=== PATIENT | female | born 1955 | race Caucasian/White ===

== ENCOUNTER 2016-12-20 11:59 | Emergency (ER) | payer BC, OTHER ==
[~2016-12-20] VITALS: Ht 160 cm; Wt 135.0 kg
[~2016-12-20 11:59] MED LIST: AMLO-147 PO; ASPRIN PO; CHOL500010 PO; CLON0.3T PO; GABA300C PO; GLYB1TAB3 PO; LAS80 PO; METO-53 PO; NAPR375T PO; NIAC500T30 PO; PYRI100T59 PO; SIMV40TA3 PO; SPIR25TA PO; TRAZADONE PO; [UNRECOGNIZED DRUG - REMARK]
[2016-12-20 12:06] VITALS: Ht 160 cm; Wt 135.0 kg
[2016-12-20] MEDS ORDERED: HYDROCODONE/APAP (10/325) TAB PO ONE (14:30)
--- NOTE | 2016-12-20 16:20 | RADRPT ---
PROCEDURE: CT Lumbar Spine without contrast. CLINICAL INDICATION: Lumbar spine pain. TECHNIQUE: The study was performed on a multislice multidetector CT scanner. Spiral axial 1 mm im ages were obtained through the lumbar spine without intravenous contrast. 1 or more of the following dose reduction techniques were utilized: Automated exposure control, adjustment of the mA and/or k V according to patient's size, iterative reconstruction technique. Coronal and sagittal reformation s were obtained. The images were reviewed on a PACS workstation. RADIATION DOSE: CTDIvol: 47.0 mGyDLP: 1648.4 mGy-cm COMPARISON: No prior studies are available for comparison. FINDINGS: There is a mild right convex scoliosis centered at L5-S1. There are diffuse anterior osteophytes th roughout the lower thoracic and lumbar spine with mild to moderate narrowing of the intervertebral d iscs at L3-4 and L4-5, slightly asymmetric to the left and L4-5. The vertebral body height and area of density is within normal limits. There are bridging right anterolateral osteophytes at T11-12,T1 2- L1 and L1-2. 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 There is mild atherosclerotic calcification of the abdominal aorta witho ut evidence of aneurysm formation. The paraspinal soft tissues unremarkable. L1-L2: The posterior margin of the disc is normal in appearance. No significant disc bulge or prot rusion is evident. The central canal and neural foramina are adequately patent. L2-L3: The posterior margin of the disc is normal in appearance. No significant disc bulge or prot rusion is evident. The central canal and neural foramina are adequately patent. L3-L4: There is a 3-4 mm posterior disc/osteophyte complex. The thecal sac is patent measuring 10 mm midline AP diameter. There is minimal effacement of both lateral recesses. There is mild bilate ral neural foraminal narrowing. L4-L5: There is a 4-5 mm annular disc bulge, asymmetric to the left paracentral/foraminal region. The thecal sac measures, measuring 6.5 mm in midline AP diameter. There is severe left and moderate right narrowing of the lateral recesses. There is severe bilateral neural foraminal narrowing. Th ere is moderate bilateral facet spondylosis with buckling ligamentum flavum. L5-S1: There is a 3 mm annular disc bulge, slightly asymmetric to the right paracentral/foraminal r egion. The thecal sac is patent measuring 10 mm midline AP diameter. There is moderate bilateral f acet hypertrophy buckling ligamentum flavum. There is mild effacement of both lateral recesses, lef t worse than right. There is moderate right and mild left neural foraminal narrowing. IMPRESSION: 1. No acute abnormality of the lumbar spine. No evidence of fracture. 2. Multilevel mild to moderate spondylosis/degenerative enthesopathy, worst at L4-5 with subsequent severe spinal stenosis, severe narrowing of the left lateral recess and severe bilateral neural for aminal narrowing at this level. RPTAT: HGAS .Refugio Matias MD, Date Time Electronically viewed and signed by .Refugio Matias MD, on 12/20/2016 16:20 .S/
--- NOTE | 2016-12-20 16:24 | RADRPT ---
PROCEDURE: CT thoracic spine without contrast. CLINICAL INDICATION: Thoracic spine pain. TECHNIQUE: The study was performed utilizing a multislice multidetector CT scanner. Direct spiral 1 mm axial sections were obtained through the thoracic spine without contrast. 1 or more of the fol lowing dose reduction techniques were utilized: Automated exposure control, adjustment of the mA an d/or kV according to patient's size, iterative reconstruction technique. Coronal and sagittal refor mations were obtained. The images were reviewed on a PACS workstation. RADIATION DOSE: CTDIvol: 45.8 mGyDLP: 1842.7 mGy-cm COMPARISON: No prior studies are available for comparison. FINDINGS: The alignment of the thoracic spine is within normal limits. There are flowing anterior osteophytes from T4-T9 consistent with DISH . The vertebral body heights and marrow density are normal in appe arance. There is no evidence of fracture The intervertebral disc spaces are preserved. The paraspi nal soft tissues unremarkable. There is no significant narrowing of the thoracic thecal sac or neur al foramina. On axial images, the posterior margin of the disc, thecal sac and neural foramina are p atent at all levels. IMPRESSION: 1. No acute abnormality of the thoracic spine. No evidence of fracture. 2. Multilevel flowing anterior osteophytes from T4 - T9 consistent with DISH. RPTAT: HGAS .Refugio Matias MD, MD Date Time Electronically viewed and signed by .Refugio Matias MD, MD on 12/20/2016 16:24 .S/
[2016-12-20] MEDS ORDERED: ORPH100T PO (16:31)
[2016-12-20] MEDS ORDERED: HYDR-906 PO (16:31)
[2016-12-20] MEDS ORDERED: IBUP-1542 PO (16:31)
--- NOTE | 2016-12-20 16:48 | ERD ---
ER Documentation Chief Complaint Date/Time DATE: 12/20/16 TIME: 16:38 Chief Complaint Back X 10 days. reported no fall or injury. HPI This is a 61-year-old female presents to the ER with back pain for the last 10 days. Patient has not fallen and she states that the pain is mostly on the right side of her back. Patient does admit to numbness of bilateral legs however she denies any urinary bowel incontinence or saddle like anesthesia. Patient does not have any fevers or chills. Patient tried putting patches on her back, but they have not worked. Patient has not had any trauma to her back. She has not had any fevers or chills. Patient does not have any urinary frequency, dysuria, hematuria. She does not have any flank pain. ROS 12 point review of systems was done, all negative except per HPI. Medications Home Meds Active Scripts Ibuprofen* (Motrin*) 600 Mg Tab, 600 MG PO Q6, #30 TAB Prov:PAUL DELGADO 12/20/16 Orphenadrine Citrate (Norflex) 100 Mg Tablet.sa, 100 MG PO BID for 7 Days, TAB.SA Prov:PAUL DELGADO 12/20/16 Hydrocodone/Acetaminophen ([place] 5-325 Tablet) 1 Each Tablet, 1 EACH PO Q6, #15 TAB Prov:PAUL DELGADO 12/20/16 Reported Medications Clonidine Hcl* (Clonidine Hcl*) 0.3 Mg Tablet, 0.3 MG PO TID 12/09/11 [Asprin] No Conflict Check, 81 MG PO DAILY 12/09/11 Spironolactone* (Aldactone*) 25 Mg Tablet, 25 MG PO DAILY 12/09/11 Furosemide (Lasix) 80 Mg Tab, 80 MG PO DAILY 12/09/11 Simvastatin (Simvastatin) 40 Mg Tablet, 40 MG PO HS 12/09/11 Pyridoxine Hcl* (Vitamin B-6*) 100 Mg Tablet, 100 MG PO DAILY 12/09/11 Cholecalciferol (Vitamin D3) 5,000 Unit Tablet, 5000 UNIT PO Q WEEK 12/09/11 [Trazadone] No Conflict Check, 100 MG PO DAILY 12/09/11 Niacin (Endur-Acin) 500 Mg Tablet.sa, 1000 MG PO DAILY 12/09/11 Metoprolol (Lopressor) 50 Mg Tablet, 50 MG PO DAILY 12/09/11 Amlodipine Besylate* (Amlodipine Besylate*) 10 Mg Tablet, 10 MG PO DAILY 12/09/11 Naproxen* (Naprosyn*) 375 Mg Tablet, 375 MG PO BID 12/09/11 Gabapentin* (Neurontin*) 300 Mg Capsule, 300 MG PO TID 12/09/11 [Travel Sickness Med] No Conflict Check 12/09/11 Glyburide, Micro-Metformin Hcl (Glyburide-Metformin) 1 Tab Tablet, 1 TAB PO TID 12/09/11 Allergies Allergies: Coded Allergies: ampicillin (Verified Allergy, Unknown, 12/20/16) PMhx/Soc History of Surgery: Yes (STOMACH, HERNIA, KIDNEY STONE REMOVAL) Anesthesia Reaction: No Hx Neurological Disorder: No Hx Respiratory Disorders: Yes (SLEEP APNEA, ASTHMA) Hx Cardiac Disorders: Yes (HTN, HIGH CHOL) Hx Psychiatric Problems: No Hx Miscellaneous Medical Probl: No (DM) Hx Alcohol Use: No Hx Substance Use: No Hx Tobacco Use: No Smoking Status: Never smoker Physical Exam Vitals Vital Signs Date Time Temp Pulse Resp B/P Pulse Ox O2 Delivery O2 Flow Rate FiO2 12/20/16 12:06 97.9 71 18 178/74 96 Physical Exam GENERAL: The patient is well developed and appropriate for usual state of health , in no apparent distress. CHEST: Clear to auscultation bilaterally. There are no rales, wheezes or rhonchi. HEART: Regular rate and rhythm. No murmurs, clicks, rubs or gallops. ABDOMEN: Soft, nontender and nondistended. Good bowel sounds. No rebound or guarding. No gross peritonitis. No gross organomegaly or masses. No Purcell sign or McBurney point tenderness. No pulsatile abdominal mass. BACK: Patient is able to ambulate. She is sitting down in no obvious distress. There is no surface trauma. No abrasions ecchymosis. Patient is tender to palpation to paraspinal muscles no step-offs or deformities over the bony cervical thoracic or lumbar spine. Patient is tender to palpation to L3 through L5 at the midline. No CVA tenderness to percussion. Patient is able to stand erect, however it is painful. Painful flexion, lateral bending and rotation. Heel and toe walk with good strength. Dorsi and plantar flexion with adequate strength. Negative straight leg test. Good dorsalis pedal pulses and posterior tibial pulse. EXTREMITIES: Equal pulses bilaterally. There is no peripheral clubbing, cyanosis or edema. No focal swelling or erythema. Full range of motion. Grossly neurovascularly intact. NEURO: Alert and oriented. Cranial nerves II through XII are intact. SKIN: The skin is warm and dry. Results 24 hrs Current Medications Medications (Trade) Dose Ordered Sig/Jaime Route PRN Reason Start Time Stop Time Status Last Admin Dose Admin Acetaminophen/ Hydrocodone Bitart ([place] ()) 1 tab ONCE ONCE PO 12/20/16 14:30 12/20/16 14:31 DC 12/20/16 14:21 Procedures/MDM Differential Diagnosis includes but is not limited to back strain, vertebral fracture, epidural abscess, cauda equina, herniated disc, AAA rupture, kidney stones, UTI, pyelonephritis. Patient does appear to have some disc bulges and spinal stenosis is likely the cause of her pain. Suspicion for cauda equina syndrome, infection such as discitis transverse myelitis or epidural abscess or hematoma is low. Patient is afebrile and well-appearing. I doubt UTI or pyelonephritis as patient does not have any urinary symptoms. Suspicion for malignancy is low. Patient will be sent home with [place], Norflex, ibuprofen. She is to follow-up with primary care doctor within 1-2 days or return to ER sooner if symptoms worsen. My medical decision making shared with the patient and her son they both understand and agree with plan. Departure Diagnosis: Primary Impression: Back pain Condition: Stable Patient Instructions: Back Pain (Acute Or Chronic) Additional Instructions: Call your primary care doctor TOMORROW for an appointment during the next 1-2 days.See the doctor sooner or return here if your condition worsens before your appointment time. PAUL DELGADO Dec 20, 2016 16:47
== END 2016-12-20 16:44 | disposition home or self-care (01) ==
LOC: FTE 11:59
DX: M54.5 Low back pain (principal); J45.909 Unspecified asthma, uncomplicated; I10 Essential (primary) hypertension; E11.9 Type 2 diabetes mellitus without complications; Z79.82 Long term (current) use of aspirin; Z79.84 Long term (current) use of oral hypoglycemic drugs
CPT/HCPCS: 72128; 72131; Z7502; Z7610